=== PATIENT | female | born 1965 | race Caucasian/White ===

== ENCOUNTER 2021-10-05 14:51 | Emergency (ER) | payer OTHER ==
[~2021-10-05] VITALS: Ht 167.6 cm; Wt 77.6 kg
--- NOTE | 2021-10-05 15:30 | NUR ---
BIBS for "Feelings of depression/stress/fear/anxiety months"Denies suicidal ideation. Denies HI. Denies having any hallucinations. In room air and denies SOB. Respiration regular and unlabored. Denies pain. Will continue to monitor the patient.
[2021-10-05] MEDS ORDERED: MELA5TAB PO (15:58)
[2021-10-05] MEDS ORDERED: PARO10TA86 PO (15:58)
--- NOTE | 2021-10-05 16:22 | NUR ---
Patient discharged to home in stable condition. Written and verbal after care instructions given. Patient verbalizes understanding of instruction.
[2021-10-05 16:26] VITALS: BP 131/82
== END 2021-10-05 16:26 | disposition home or self-care (01) ==
LOC: ER 15:24
DX: F32.A Depression, unspecified (principal); F51.05 Insomnia due to other mental disorder; I10 Essential (primary) hypertension; K21.9 Gastro-esophageal reflux disease without esophagitis